=== PATIENT | female | born 1970 | race Caucasian/White ===

== ENCOUNTER → 2017-04-28 | Outpatient (CLI) | payer BC, OTHER ==
[~2017-04-28] MED LIST: DOXY100 PO; HCTZ 25MG; LEVSOD100 PO; LISI10 PO; ONDA4ODT MM; OXYACE5T PO; POTCHL20ER PO; PROG100 PO; THYR60 PO
[2017-04-30 11:36] LABS: HPV Genotype 16 Not Detected (NOTDET); HPV Genotype 18 Not Detected (NOTDET)
[2017-05-09 14:04] LABS: HPV High Risk Other Not Detected (NOTDET)
== END | disposition home or self-care (01) ==
LOC: LAB 15:00
PROVIDERS: Nurse Practitioner Women's Health
DX: Z12.72 Encounter for screening for malignant neoplasm of vagina (principal); Z91.89 Other specified personal risk factors, not elsewhere classified
CPT/HCPCS: 87624; G0123

== ENCOUNTER → 2023-06-06 | Outpatient (CLI) | payer OTHER | LOC: LAB SHORT 11:00 → LAB 11:00 | DX: R10.13 Epigastric pain (principal) | CPT/HCPCS: 87338 ==